=== PATIENT | female | born 1945 | race Caucasian/White ===

== ENCOUNTER 2019-08-06 10:46 | Day surgery (SDC) | payer MEDICARE, BC ==
[2019-08-04 15:37] LABS: BASOPHILS # (AUTO) 0.1 X10'3 (0-0.2); EOSINOPHILS # (AUTO) 0.1 X10'3 (0-0.9); EOSINOPHILS % (AUTO) 1.1 % (0-6); LYMPHOCYTES # (AUTO) 1.2 X10'3 (1.1-4.8); LYMPHOCYTES % (AUTO) 21.6 % (21-51); MEAN CORPUSCULAR HEMOGLOBIN 32.8 PG (27.0-31.0); MEAN CORPUSCULAR HGB CONC 33.6 g/dL (33.0-36.5); MEAN CORPUSCULAR VOLUME 97.5 FL (78-98); MONOCYTES # (AUTO) 0.4 X10'3 (0-0.9); NEUTROPHILS # (AUTO) 3.8 X10'3 (1.8-7.7); NEUTROPHILS % (AUTO) 69.3 % (42-75); PRE OP HEMATOCRIT 41.2 % (35.0-45.0); PRE OP HEMOGLOBIN 13.8 g/dL (12.0-16.0); PRE OP PLATELET COUNT 273 X10'3 (140-440); RED BLOOD COUNT 4.22 X10'6 (4.20-5.60); RED CELL DISTRIBUTION WIDTH 13.1 % (11.5-14.5)
[2019-08-04 15:47] LABS: ALBUMIN/GLOBULIN RATIO 1.1 (1.1-1.5); ALKALINE PHOSPHATASE 95 IU/L (46-116); BLOOD UREA NITROGEN 16 MG/DL (7-18); BUN/CREATININE RATIO 18.4 (6.6-38.0); CALCIUM 9.5 MG/DL (8.5-10.1); CHLORIDE 103 MMOL/L (99-107); CREATININE 0.87 MG/DL (0.40-0.90); PRE OP ALT 27 U/L (30-65); PRE OP ANION GAP 10 (8-16); PRE OP AST 23 U/L (10-37); PRE OP BILIRUB, TOTAL 0.3 MG/DL (0.0-1.0); PRE OP GLUCOSE 90 MG/DL (70-104); PRE OP POTASSIUM 3.7 MMOL/L (3.4-5.1); PRE OP SODIUM 140 MMOL/L (135-145); TOTAL CARBON DIOXIDE 27.3 MMOL/L (24-32); TOTAL PROTEIN 7.7 G/DL (6.4-8.2); eGFR 63 ML/MIN
[~2019-08-06] VITALS: Ht 165.1 cm; Wt 59.0 kg
[2019-08-06] VITALS (7 sets, daily range): BP systolic 116–126; BP diastolic 61–75
[~2019-08-06 10:46] MED LIST: ASPI1TAB2 PO; CHOL100046 PO; LACT1CAP65 PO; LOSA100T57 PO; OM3/1CAP3 PO; VITAL REDS PO; [UNRECOGNIZED DRUG - CODE]; [UNRECOGNIZED DRUG - OTHER] PO; cefazolin/dext.iso 2gm/50ml 50 ML IV ONE; famotidine 20mg tablet PO ONE; ringers solution, lacted 1,000 ML IV SCH
[2019-08-06] MEDS ORDERED: ringers solution, lacted 1,000 ML IV SCH (14:56)
[2019-08-06] MEDS ORDERED: morphine 4 MG/ML inj SYRINge IV PRN ×2 (15:00)
[2019-08-06] MEDS ORDERED: meperidine/PF 25mg/ml syringe IV PRN ×3 (15:00)
[2019-08-06] MEDS ORDERED: ondansetron/PF 4mg/2ml inj IV PRN (15:00)
[2019-08-06] MEDS ORDERED: proCHLORperazine 10 MG/2 ml inj IV PRN (15:00)
[2019-08-06] MEDS ORDERED: BUPIVAcaine/PF 2.5mg/ml (0.25%) 10ml vial ONE (15:26)
[2019-08-06] MEDS ORDERED: fentaNYL/PF 50MCG/1 ML 2ML syringe ONE (15:27)
[2019-08-06] MEDS ORDERED: midazolam 2 mg/2 ml injection ONE (15:27)
[2019-08-06] MEDS ORDERED: sevoflurane 250ml liquid IH ONE (15:30)
[2019-08-06] MEDS ORDERED: ROPIVAcaine 0.5% (5mg/ml) 30ml vial ONE (16:39)
[2019-08-06] MEDS ORDERED: propofol inj 20 ML IV ONE (16:39)
--- NOTE | 2019-08-06 16:41 | NUR ---
Received from OR via [facility] , accompanied by Anesthesiologist ANDRA and report given by Anesthesiolgist. PATIENT WITH 20G PIV IN RIGHT WRIST. LEFT UE IS IN SLING, SPLINT IN PLACE AND INTACT. NO DRAINAGE PRESENT. + CAP REFILL, SLING ON. Addendum: 08/06/19 at 1654 by Kurt Irizarry RN, RN Amended: Links added.
--- NOTE | 2019-08-06 17:31 | NUR ---
ALL DC CRITERIA HAS BEEN MET. IV TAKEN OUT WITHOUT COMPLICATIONS. ALL INSTRUCTIONS COVERED AND ALL QUESTIONS ANSWERED. DRESSINGS CDI. OUT VIA WHEELCHAIR TO PERSONAL VEHICLE WHERE PATIENT WAS SECURED IN AND DRIVEN HOME BY FAMILY. DAUGHTER PRESENT FOR DC INSTRUCTIONS AND DRESSING PATIENTS. DRESSING CDI. ICE SENT WITH PATIENT FOR RIDE HOME. PAIN WELL CONTROLLED AND DOES NOT WISH FOR PAIN MEDS. Addendum: 08/06/19 at 1757 by Kurt Irizarry RN, RN Amended: Links added.
== END 2019-08-06 17:31 | disposition home or self-care (01) ==
LOC: PAS 10:46
PROVIDERS: ATTEND Orthopaedic Surgery Hand Surgery
DX: S52.572A Other intraarticular fracture of lower end of left radius, initial encounter for closed fracture (principal); I10 Essential (primary) hypertension; G89.18 Other acute postprocedural pain; Z91.018 Allergy to other foods; Z91.041 Radiographic dye allergy status; Z86.73 Personal history of transient ischemic attack (TIA), and cerebral infarction without residual deficits; X58.XXXA Exposure to other specified factors, initial encounter; Y93.89 Activity, other specified; Y92.89 Other specified places as the place of occurrence of the external cause; Y99.8 Other external cause status; Z79.899 Other long term (current) drug therapy; Z79.82 Long term (current) use of aspirin
CPT/HCPCS: 25609; 36415; 64417; 80053; 82948; 85025; A6222; C1713; J2250; J2704; J3010; J3490; A4215; A4565; A4618; A6449; J2795; J7120